=== PATIENT | male | born 1955 | race Caucasian/White ===

== ENCOUNTER → 2020-10-08 | Outpatient (CLI) | payer BC, OTHER ==
[~2020-10-08] MED LIST: AMLODIPINE BESYL5 MG PO; ASPIR-LOW81 MG PO; DOXYCYCLINE HY100 M2 PO; DULCOLAX5 MG PO; FLOMAX 0.4 MG0.4 MG PO; GLUCOPHAGE XR500 M1 PO; LOVAZA1 GM PO; METOPROLOL TART25 MG PO; OMEPRAZOLE20 M1 PO; RAMIPRIL10 MG PO; TYLENOL 325MG325 MG PO; ZOCOR 10 MG TAB10 MG PO; [UNRECOGNIZED DRUG - OTHER] SQ
== END ==
LOC: EXRD 13:00
DX: N28.1 Cyst of kidney, acquired (principal); N28.9 Disorder of kidney and ureter, unspecified
CPT/HCPCS: 76775

== ENCOUNTER → 2021-10-30 | Outpatient (CLI) | payer OTHER | LOC: KOH-I 08:00 | DX: R80.9 Proteinuria, unspecified (principal); K76.0 Fatty (change of) liver, not elsewhere classified | CPT/HCPCS: 76700 ==

== ENCOUNTER → 2022-01-06 | Outpatient (CLI) | payer OTHER | LOC: ECHO 08:03 | DX: I20.8 Other forms of angina pectoris (principal); R06.02 Shortness of breath; I11.9 Hypertensive heart disease without heart failure; E11.9 Type 2 diabetes mellitus without complications; I34.0 Nonrheumatic mitral (valve) insufficiency | CPT/HCPCS: ECHO; 78452; 93017; 93306; A9502 ==